=== PATIENT | female | born 2000 | race American Indian/Alaskan Native ===

== ENCOUNTER 2022-01-06 12:55 | Emergency (ER) | payer SELFPAY ==
[2022-01-06 15:13] VITALS: BP 110/78
[2022-01-06] MEDS ORDERED: ACETAMINOPHEN 500 MG TAB PO ONE (15:17)
--- NOTE | 2022-01-06 15:22 | Emergency Department Report ---
ED General Adult HPI - General Chief complaint: Extremity Injury, Lower Stated complaint: FEET/ANKLE SWOLLEN Time Seen by Provider: 01/06/22 14:27 Source: patient Mode of arrival: Ambulatory Limitations: No Limitations - History of Present Illness Initial comments: Is a 21-year-old -[place] female who presents for bilateral lower extremity ankle swelling. Patient denies suspicious travel or history of DVT or PE. There is a intermittent problem for the past year. Patient seen by PCP for same pending lab results as of last week. Patient denies fevers chills there is no shortness of breath no cough no wheezing or shortness of breath. Patient has no history of heart problems. Last menstrual cycle was yesterday currently on menses. Patient denies fall injury or trauma. 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 There is no numbness or tingling however there is bilateral aching at 7/10. Patient denies any relieving factors. Severity scale (0 -10): 0 - Related Data Previous Rx's Medication Instructions Recorded Last Taken Type Amoxicillin/K Clav Tab [Augmentin 1 tab PO BID #20 tablet 10/07/14 Unknown Rx 875MG] Ondansetron [Zofran Odt] 4 mg PO Q6H PRN #20 tab.rapdis 10/07/14 Unknown Rx levoFLOXacin [Levaquin TAB] 500 mg PO QDAY 7 Days #7 tablet 01/06/22 Unknown Rx Allergies Allergy/AdvReac Type Severity Reaction Status Date / Time No Known Allergies Allergy Verified 01/06/22 15:13 ED Review of Systems ROS: Stated complaint: FEET/ANKLE SWOLLEN Other details as noted in HPI Constitutional: denies: chills, fever Eyes: denies: eye pain, eye discharge, vision change ENT: denies: ear pain, throat pain Respiratory: denies: cough, shortness of breath, wheezing Cardiovascular: denies: chest pain, palpitations Endocrine: no symptoms reported Gastrointestinal: denies: abdominal pain, nausea, vomiting, diarrhea Genitourinary: denies: urgency, dysuria, discharge Musculoskeletal: other (Bilateral lower leg pain and swelling). denies: back pain, joint swelling, arthralgia Skin: as per HPI Neurological: denies: headache, weakness, paresthesias Psychiatric: denies: anxiety, depression Hematological/Lymphatic: denies: easy bleeding, easy bruising ED Past Medical Hx - Past Medical History Previous Medical History?: Yes Additional medical history: Anemia - Surgical History Past Surgical History?: No - Social History Smoking Status: Never Smoker Substance Use Type: None - Medications Home Medications: Home Medications Medication Instructions Recorded Confirmed Last Taken Type Amoxicillin/K Clav Tab [Augmentin 1 tab PO BID #20 tablet 10/07/14 01/06/22 Unknown Rx 875MG] Ondansetron [Zofran Odt] 4 mg PO Q6H PRN #20 tab.rapdis 10/07/14 01/06/22 Unknown Rx levoFLOXacin [Levaquin TAB] 500 mg PO QDAY 7 Days #7 tablet 01/06/22 Unknown Rx ED Physical Exam - General Limitations: No Limitations General appearance: alert, in no apparent distress - Head Head exam: Present: normocephalic, normal inspection - Eye Eye exam: Present: EOMI Pupils: Present: normal accommodation - ENT ENT exam: Present: mucous membranes moist - Neck Neck exam: Present: normal inspection, full ROM. Absent: tenderness - Respiratory Respiratory exam: Present: normal lung sounds bilaterally. Absent: respiratory distress, wheezes, chest wall tenderness - Cardiovascular Cardiovascular Exam: Present: regular rate, normal rhythm, normal heart sounds. Absent: systolic murmur, diastolic murmur, rubs, gallop - GI/Abdominal GI/Abdominal exam: Present: soft, normal bowel sounds. Absent: distended, tenderness - Rectal Rectal exam: Present: deferred - Extremities Exam Extremities exam: Present: normal inspection, full ROM, tenderness (Mild tenderness to palpation distal pulses intact +2 range of motion is intact. No pain with dorsiflexion. [employer] SALES [employer] less than 3 seconds bilateral.), normal capillary refill, joint swelling (, Ankle). Absent: calf tenderness - Expanded Lower Extremity Exam Left Lower Leg exam: Present: swelling. Absent: tenderness, palpable cord, Annalee's sign Ankle exam: Present: swelling. Absent: tenderness, erythema, anterior draw sign Foot/Toe exam: Present: tenderness, swelling. Absent: ecchymosis, deformity, erythema Neuro vascular tendon exam: Absent: pulse deficit, motor deficit, sensory deficit, tendon deficit Gait: Positive: observed and limited by pain Right Lower Leg exam: Present: full ROM, tenderness, swelling. Absent: palpable cord, Annalee's sign Foot/Toe exam: Present: full ROM, swelling. Absent: tenderness Neuro vascular tendon exam: Absent: pulse deficit, motor deficit, sensory deficit, tendon deficit Gait: Positive: observed and limited by pain - Back Exam Back exam: Present: normal inspection, full ROM. Absent: CVA tenderness (R), CVA tenderness (L) - Neurological Exam Neurological exam: Present: alert, oriented X3, CN II-XII intact, normal gait, reflexes normal. Absent: motor sensory deficit - Expanded Neurological Exam Expanded Patient oriented to: Present: person, place, time Speech: Present: fluid speech Motor strength exam: RUE: 5, LUE: 5, RLE: 5, LLE: 5 DTR: ankle (R): 1+, ankle (L): 1+ Best Eye Response ([place]): (4) open spontaneously Best Motor Response ([place]): (6) obeys commands Best Verbal Response ([place]): (5) oriented [place] Total: 15 - Psychiatric Psychiatric exam: Present: normal affect, normal mood - Skin Skin exam: Present: warm, dry, intact, normal color. Absent: rash ED Course Vital Signs 01/06/22 01/06/22 13:04 15:12 Temperature 98.3 F 98.0 F Pulse Rate 100 H 66 Respiratory 20 18 Rate Blood Pressure 127/70 110/78 [Right] O2 Sat by Pulse 100 99 Oximetry ED Medical Decision Making - Lab Data Result diagrams: 01/06/22 15:07 01/06/22 15:07 Labs 01/06/22 01/06/22 01/06/22 15:07 15:07 15:07 WBC 19.5 H RBC 4.56 Hgb 10.2 Hct 32.7 MCV 72 L MCH 22 L MCHC 31 RDW 15.6 H Plt Count 570 H Lymph % (Auto) 6.3 L [place] % (Auto) 5.6 Eos % (Auto) 10.2 H Baso % (Auto) 0.7 Lymph # (Auto) 1.2 [place] # (Auto) 1.1 H Eos # (Auto) 2.0 H Baso # (Auto) 0.1 Seg Neutrophils % 77.2 H Seg Neutrophils # 15.0 H Sodium 140 Potassium 3.9 Chloride 102.0 Carbon Dioxide 23 Anion Gap 19 BUN 9 Creatinine 0.5 L Estimated GFR > 60 BUN/Creatinine Ratio 18 Glucose 80 Lactic Acid Calcium 8.5 Total Bilirubin 0.50 AST 130 H ALT 267 H Alkaline Phosphatase 174 H Total Creatine Kinase Total Protein 7.8 Albumin 3.2 L Albumin/Globulin Ratio 0.7 Lipase HCG, Quant < 2 Urine Color Urine Turbidity Urine pH Ur Specific [place] Urine Protein Urine Glucose (UA) Urine Ketones Urine Blood Urine Nitrite Urine Bilirubin Urine Urobilinogen Ur Leukocyte Esterase Urine WBC (Auto) Urine RBC (Auto) Urine Bacteria (Auto) 01/06/22 01/06/22 01/06/22 17:33 17:33 17:33 WBC RBC Hgb Hct MCV MCH MCHC RDW Plt Count Lymph % (Auto) [place] % (Auto) Eos % (Auto) Baso % (Auto) Lymph # (Auto) [place] # (Auto) Eos # (Auto) Baso # (Auto) Seg Neutrophils % Seg Neutrophils # Sodium Potassium Chloride Carbon Dioxide Anion Gap BUN Creatinine Estimated GFR BUN/Creatinine Ratio Glucose Lactic Acid 2.20 H* Calcium Total Bilirubin AST ALT Alkaline Phosphatase Total Creatine Kinase 136 H Total Protein Albumin Albumin/Globulin Ratio Lipase 11 L HCG, Quant Urine Color Urine Turbidity Urine pH Ur Specific [place] Urine Protein Urine Glucose (UA) Urine Ketones Urine Blood Urine Nitrite Urine Bilirubin Urine Urobilinogen Ur Leukocyte Esterase Urine WBC (Auto) Urine RBC (Auto) Urine Bacteria (Auto) 01/06/22 Unknown WBC RBC Hgb Hct MCV MCH MCHC RDW Plt Count Lymph % (Auto) [place] % (Auto) Eos % (Auto) Baso % (Auto) Lymph # (Auto) [place] # (Auto) Eos # (Auto) Baso # (Auto) Seg Neutrophils % Seg Neutrophils # Sodium Potassium Chloride Carbon Dioxide Anion Gap BUN Creatinine Estimated GFR BUN/Creatinine Ratio Glucose Lactic Acid Calcium Total Bilirubin AST ALT Alkaline Phosphatase Total Creatine Kinase Total Protein Albumin Albumin/Globulin Ratio Lipase HCG, Quant Urine Color Brown Urine Turbidity Slightly-cloudy Urine pH 5.0 Ur Specific [place] 1.024 Urine Protein 100 mg/dl Urine Glucose (UA) Neg Urine Ketones Neg Urine Blood Lg Urine Nitrite Pos Urine Bilirubin Neg Urine Urobilinogen 4.0 Ur Leukocyte Esterase Mod Urine WBC (Auto) > 182.0 H Urine RBC (Auto) > 182.0 Urine Bacteria (Auto) 4+ - Radiology Data Radiology results: report reviewed, image reviewed XR chest routine 2V INDICATION / CLINICAL INFORMATION: Bilat LE Edema COMPARISON: None available. FINDINGS: SUPPORT DEVICES: None. HEART / MEDIASTINUM: No significant abnormality. LUNGS / PLEURA: Lungs are clear. Costophrenic sulci are sharp. No pneumothorax. ADDITIONAL FINDINGS: No significant additional findings. IMPRESSION: 1. No acute findings. Signer Name: Gene Benavidez MD Signed: 01/06/2022 4:37 PM Workstation Name: [id number] Transcribed By: Dictated By: Gene Benavidez MD Electronically Authenticated By: Gene Benavidez MD Signed Date/Time: 01/06/221636 DD/ 35 TD/TT: Print Cancel - Medical Decision Making Chest x-ray normal no infiltrates no opacities, labs noted as above, patient now advises he can no longer wait for diagnostics. She advises that she is leaving at this time. Pt declines CT abdomen pelvis. I have discussed diagnostics patient up to this point, I have given patient the opportunity to ask and I have answered all questions related to her diagnostics to this point and importance of completing evaluation. Patient advises she is leaving and does not want to await CT abdomen and pelvis, or other diagnostic studies. Patient refuses additional IV attempts of iv abx and IVFs. Plan. Patient will sign out AMA, will leave with prescriptions. Patient will follow-up primary care doctor tomorrow as scheduled. Pt given strict instructions to return to ED should symptoms worsen. Patient verbalized agreement understanding and signed out AMA at this time. Patient currently alert oriented x3 patient ,emonstrates sound decision-making capacity patient is signing out AMA at this time.. Critical care attestation.: If time is entered above; I have spent that time in minutes in the direct care of this critically ill patient, excluding procedure time. ED Disposition Clinical Impression: Dehydration UTI (urinary tract infection) Qualifiers: Urinary tract infection type: acute cystitis Hematuria presence: without hematuria Qualified Code(s): N30.00 - Acute cystitis without hematuria Disposition: HOME / SELF CARE / HOMELESS Is pt being admited?: No Does the pt Need Aspirin: No Condition: Undetermined Instructions: Urinary Tract Infection, Adult Additional Instructions: Follow up with your doctor tomorrow, return to emergency if symptoms worsen. Prescriptions: levoFLOXacin [Levaquin TAB] 500 mg PO QDAY 7 Days #7 tablet Forms: AMA Form Time of Disposition: 18:24
[2022-01-06 15:39] LABS: Basophils # (Auto) 0.1 K/mm3 (0.0-0.1); Basophils % (Auto) 0.7 % (0.0-1.8); Eosinophils % (Auto) 10.2 % (0.0-4.3); Hematocrit 32.7 % (30.3-42.9); Hemoglobin 10.2 gm/dl (10.1-14.3); Lymphocytes # (Auto) 1.2 K/mm3 (1.2-5.4); Lymphocytes % (Auto) 6.3 % (13.4-35.0); Mean Corpuscular HGB Conc 31 % (30-34); Mean Corpuscular Volume 72 fl (79-97); Monocytes # (Auto) 1.1 K/mm3 (0.0-0.8); Monocytes % (Auto) 5.6 % (0.0-7.3); Platelet Count 570 K/mm3 (140-440); Red Blood Count 4.56 M/mm3 (3.65-5.03); Red Cell Distribution Width 15.6 % (13.2-15.2)
[2022-01-06 15:50] LABS: Alanine Aminotransferase 267 units/L (7-56); Albumin 3.2 g/dL (3.9-5); Blood Urea Nitrogen 9 mg/dL (7-17); Calcium 8.5 mg/dL (8.4-10.2); Hemolysis Index 16
[2022-01-06 16:16] LABS: BUN/Creatinine Ratio 18
--- NOTE | 2022-01-06 16:41 | XRay Report ---
XR chest routine 2V INDICATION / CLINICAL INFORMATION: Bilat LE Edema COMPARISON: None available. FINDINGS: SUPPORT DEVICES: None. HEART / MEDIASTINUM: No significant abnormality. LUNGS / PLEURA: Lungs are clear. Costophrenic sulci are sharp. No pneumothorax. ADDITIONAL FINDINGS: No significant additional findings. IMPRESSION: 1. No acute findings. Signer Name: Gene Benavidez MD Signed: 01/06/2022 4:37 PM Workstation Name: [id number]
[2022-01-06 16:50] LABS: Bacteria,Urine 4+ /HPF (Negative); Bilirubin,Urine NEG (Negative); Blood,Urine LG (Negative); Color,Urine Brown (Yellow); RBC,Urine > 182.0 /HPF (0.0-6.0); WBC,Urine > 182.0 /HPF (0.0-6.0)
[2022-01-06] MEDS ORDERED: SODIUM CHLORIDE 0.9% 1000 ML 1,000 ML IV ONE (16:53)
[2022-01-06] MEDS ORDERED: cefTRIAXone/NS 1 GM/50 ML 1 GM/50 ML BAG IV ONE (16:55)
[2022-01-06] MEDS ORDERED: LIDOCAINE-MPF (1%) 10 MG/1 ML VIAL 5 ML INFILTRATI ONE (18:20)
== END 2022-01-06 19:22 | disposition home or self-care (01) ==
LOC: ED 12:55
DX: E86.0 Dehydration (principal); N39.0 Urinary tract infection, site not specified; Z79.899 Other long term (current) drug therapy
CPT/HCPCS: 36415; 71046; 80053; 81001; 82140; 82550; 83690; 84702; 85025; 87040; 96372; 99284; J0696; J3490; J7030